=== PATIENT | female | born 1945 | race Asian ===

== ENCOUNTER 2016-10-04 16:35 | Inpatient (IN) | payer OTHER ==
[~2016-10-04] VITALS: Ht 167.6 cm; Wt 78.9 kg
[~2016-10-04 16:35] MED LIST: ABILIFY20 MG PO; ACCU-CHEK; AMLO2.5T PO; ARTISOL20 OPTH; ASCO500T18 PO; CARV6.25 PO; DONE5TAB PO; FURO20TA67 PO; HALO5INJ3 IM; HUMALOG100 MG/ML SC; HYDR5TAB9 PO; INSU100P SC; LEVEMIR FLEXPEN SC; LEXAPRO20 MG PO; LIPITOR80 MG PO; LISI10TA11 PO; LORA1TAB17 PO; LORA2INJ21 INJ; METO50TA27 PO; MIRAPEX0.125 MG PO; MULTIVITAMI1 PO; NAMENDA10 MG PO; NAMENDA5 MG PO; PANT40TA PO; PRIM50TA4 PO; RISP0.25 PO; RISP50IN IM; SEROQUEL300 MG PO; SERT100T PO; SIME40DR3 PO; TRAM50TA PO; VITAMIN D32000 UNI1 PO; ZIPR20CA PO; ZIPR20IN IM
[2016-10-04 18:49] VITALS: BP 185/74; TEMP 98.4; Ht 167.6 cm; Wt 78.9 kg
[2016-10-04 20:45] LABS: PLATELET COUNT 182 K/uL (152-353)
[2016-10-04 21:10] LABS: POTASSIUM 5.6 mmol/L (3.6-5.2)
[2016-10-05] VITALS (18 sets, daily range): BP systolic 87–154; BP diastolic 38–105; TEMP 98.7–98.8
[2016-10-05 06:48] LABS: PLATELET COUNT 195 K/uL (152-353)
[2016-10-05 07:06] LABS: POTASSIUM 4.2 mmol/L (3.6-5.2)
[2016-10-06] VITALS (17 sets, daily range): BP systolic 99–148; BP diastolic 56–91; TEMP 97.8–101
[2016-10-06 06:10] LABS: PLATELET COUNT 231 K/uL (152-353)
[2016-10-07] VITALS (19 sets, daily range): BP systolic 100–166; BP diastolic 57–104; TEMP 97.5–100.1
[2016-10-07 07:53] LABS: PLATELET COUNT 243 K/uL (152-353)
[2016-10-07 08:15] LABS: POTASSIUM 3.9 mmol/L (3.6-5.2)
[2016-10-08 07:00] VITALS: BP 115/74
[2016-10-08 08:00] VITALS: BP 168/88
[2016-10-08 08:33] LABS: PLATELET COUNT 241 K/uL (152-353)
[2016-10-08 09:14] LABS: POTASSIUM 3.5 mmol/L (3.6-5.2)
[2016-10-08 10:00] VITALS: BP 115/53; TEMP 98.4
[2016-10-08 12:00] VITALS: BP 142/87
[2016-10-08 14:00] VITALS: BP 180/90; TEMP 98.3
== END 2016-10-08 17:32 | disposition other institution (70) | DRG 194 ==
LOC: ICU 16:35 → MED/SURG 16:35 → ICU 10-08 17:32
PROVIDERS: ADMIT Emergency Medicine
DX: J18.8 Other pneumonia, unspecified organism (principal); N18.4 Chronic kidney disease, stage 4 (severe); I51.7 Cardiomegaly; K21.9 Gastro-esophageal reflux disease without esophagitis; E78.4 Other hyperlipidemia; E11.9 Type 2 diabetes mellitus without complications; F03.90 Unspecified dementia, unspecified severity, without behavioral disturbance, psychotic disturbance, mood disturbance, and anxiety; E88.09 Other disorders of plasma-protein metabolism, not elsewhere classified; R06.00 Dyspnea, unspecified; I12.9 Hypertensive chronic kidney disease with stage 1 through stage 4 chronic kidney disease, or unspecified chronic kidney disease; Y95 Nosocomial condition
CPT/HCPCS: 36415; 51702; 80053; 81000; 82550; 82553; 82805; 82962; 83735; 84484; 85027; 85379; 87040; 87070; 87077; 87205; 93005; 94640; 94664; 94760; 96372; J1630; J1650; J1815; J1940; J2060; J3260; J3475